=== PATIENT | female | born 1950 | race Caucasian/White ===

== ENCOUNTER → 2017-06-14 | Outpatient (CLI) | payer MEDICARE, OTHER ==
[~2017-06-14] MED LIST: CEFD300C37 PO; LEVO25TA4 PO
== END | disposition home or self-care (01) ==
LOC: CFH 10:22
PROVIDERS: ATTEND Internal Medicine
DX: Z12.31 Encounter for screening mammogram for malignant neoplasm of breast (principal)
CPT/HCPCS: G0202